=== PATIENT | female | born 1945 | race Caucasian/White ===

== ENCOUNTER 2018-03-13 17:40 | Emergency (ER) | payer MEDICARE ==
[~2018-03-13] VITALS: Ht 157.5 cm; Wt 90.0 kg
[~2018-03-13 17:40] MED LIST: AMBIEN5 MG OR; ASPIRIN81 MG PO; CEFTIN250 MG PO; DETROL LA4 MG OR; DETROL2 MG OR; DILAUDID2 MG OR; DIOVAN HC1 OR; DIOVAN40 MG OR; DIPROLENE AF0.05 % EX; DOCUSATE SOD100 M2 OR; LORTAB 7.5 OR; LOVENOX 4040 MG/0.4 SC; MOMETASONE0.11 EX; MULT VITAMI1 OR; MULTIVITAMI9 OR; OS-CAL 500500 M1 PO; PRAVASTATIN40 MG OR; PREMARIN0.3 MG OR; PREVACID30 M1 PO; RELAFEN OR; TEMOVATE0.051 EX; TRAZODONE50 MG OR; TYLENOL325 MG OR; VENTOLIN HF1 IN; XANAX0.25 MG PO; XANAX0.5 MG PO
[2018-03-13] MEDS ORDERED: SPIRIVA HANDIH18 MCG IN (18:10)
[2018-03-13] MEDS ORDERED: OXYCODONE PO (18:10)
[2018-03-13] MEDS ORDERED: CONJUGATED ESTROGENS PO (18:11)
[2018-03-13] MEDS ORDERED: CLOBETASOL PRO0.05 % EX (18:12)
[2018-03-13] MEDS ORDERED: ARCAPTA NEOHAL75 MCG IN (18:12)
[2018-03-13] MEDS ORDERED: NEURONTIN300 MG PO (18:13)
[2018-03-13] MEDS ORDERED: CELECOXIB200 MG PO (18:13)
[2018-03-13] MEDS ORDERED: BACLOFEN20 MG PO (18:14)
[2018-03-13] MEDS ORDERED: LASIX 40 MG TAB40 MG PO (18:14)
[2018-03-13] MEDS ORDERED: ZOLPIDEM TARTRA10 MG PO (18:17)
[2018-03-13] MEDS ORDERED: ALPRAZOLAM0.5 M2 PO (18:17)
[2018-03-13] MEDS ORDERED: ALPRAZOLAM0.25 M1 PO ×2 (18:18)
[2018-03-13] MEDS ORDERED: LOPRESSOR25 M1 PO (18:18)
[2018-03-13] MEDS ORDERED: PRAVASTATIN SOD40 MG PO (18:19)
[2018-03-13] MEDS ORDERED: LEVOTHYROXIN75 MC1 PO (18:19)
[2018-03-13] MEDS ORDERED: COLACE100 MG PO (18:21)
[2018-03-13] MEDS ORDERED: CIPROFLOXACN500 MG PO (18:27)
[2018-03-13 18:39] VITALS: BP 135/88
== END 2018-03-13 18:39 | disposition home or self-care (01) ==
LOC: ED 17:40
PROC: 0HDRXZZ Extraction of Toe Nail, External Approach (ICD-10-PCS; principal; 2018-03-13)
DX: S91.201A Unspecified open wound of right great toe with damage to nail, initial encounter (principal); I10 Essential (primary) hypertension; F41.9 Anxiety disorder, unspecified; W22.8XXA Striking against or struck by other objects, initial encounter; Z85.118 Personal history of other malignant neoplasm of bronchus and lung

== ENCOUNTER 2021-04-25 01:27 | Inpatient (IN) | payer MEDICARE, MEDICAID ==
[~2021-04-25] VITALS: Ht 157.5 cm; Wt 75.0 kg
[~2021-04-25 01:27] MED LIST changes: +ALPRAZOLAM0.25 M1 PO; +ALPRAZOLAM0.5 M2 PO; +ARCAPTA NEOHAL75 MCG IN; +BACLOFEN20 MG PO; +CELECOXIB200 MG PO; +CIPROFLOXACN500 MG PO; +CLOBETASOL PRO0.05 % EX; +COLACE100 MG PO; +CONJUGATED ESTROGENS PO; +LASIX 40 MG TAB40 MG PO; +LEVOTHYROXIN75 MC1 PO; +LOPRESSOR25 M1 PO; +NEURONTIN300 MG PO; +OXYCODONE PO; +PRAVASTATIN20 MG PO; +SPIRIVA HANDIH18 MCG IN; +ZOLPIDEM TARTRA10 MG PO
--- NOTE | 2021-04-25 01:27 | NUR ---
PT TO ROOM VIA EMS STRETCHER FOR BEDSIDE TRIAGE.
[2021-04-25 02:00] LABS: IMMATURE GRANULOCYTES 0.4 % (0.0-5.0); MEAN CELL VOLUME 90.6 fL CALC (80.0-100.0); MEAN CORPUSCULAR HGB 28.1 pG CALC (26.0-32.0); NEUT# 11.9 thou/uL (2.00-7.15); RED BLOOD COUNT 4.49 mill/uL (4.20-5.60); RED CELL DISTRI WIDTH 14.6 % (11.5-15.5)
--- NOTE | 2021-04-25 02:00 | NUR ---
PT ANXIOUS UPON ARRIVAL DOESN'T WANT TO REMOVE HER GOWN BUT AGREES AFTER REASON EXPLANATION PROVIDED, C/O PAIN STATING SHE HASN'T HAD HER PAIN MEDICATION TONIGHT YET, AND SOB WITH MINIMAL TO NO EXERTION, PT HAS HX OF COPD AND IS ACTIVELY IN TREATMENT FOR LUNG CA; O2 DEPENDENT AT HOME, SATS 97% ON 4L NC, 20G EMS SITE IN LAC AND NEW 20G IN R WRIST WITH LABS OBTAINED PT LUNG SOUNDS COARSE WITH MOIST COUGH AND PT STATES THE COARSENESS AND WET COUGH ALL STARTED TODAY, COMFORT MEASURES PROVIDED, CALL WESLEY WITHIN REACH
[2021-04-25 02:03] LABS: HEMATOCRIT 40.7 % (37.0-47.0); HEMOGLOBIN 12.6 g/dl (12.0-16.0)
[2021-04-25 02:28] LABS: ALKALINE PHOSPHATASE 82 u/l (38-126); BUN 15 mg/dL (8-23); BUN/CREATININE RATIO 19 (12-20 (CALC)); CHLORIDE 96 mmol/l (95-108); CREATININE 0.8 mg/dL (0.5-1.0); GFR > 60 ML/MIN (>=60 (CALC)); GFR FOR AFR.AMER. > 60 ML/MIN (>=60 (CALC)); POTASSIUM 3.4 mmol/l (3.5-5.1); SGOT/AST 29 u/l (9-36); SODIUM 132 mmol/l (137-146); TOTAL PROTEIN 5.8 g/dL (6.3-8.2)
[2021-04-25 02:30] LABS: ANION GAP 9 (6-22 (CALC)); BILIRUBIN, TOTAL 0.9 mg/dL (0.0-1.4); CARBON DIOXIDE 30 mmol/l (22-30)
--- NOTE | 2021-04-25 03:00 | NUR ---
PT CONTINUES TO HAVE MOIST INTERMITTENT COUGH, DAUGHTER AT BEDSIDE, VS STABLE, AFEBRILE, WILL CONTINUE TO MONITOR.
--- NOTE | 2021-04-25 03:38 | NUR ---
PT MEDICATED ORDERED WITH IVF AND ABT WELL STEROIDS.
--- NOTE | 2021-04-25 03:39 | NUR ---
PT AWARE OF NEED FOR SPUTUM SPECIMEN IF POSSIBLE
--- NOTE | 2021-04-25 04:18 | NUR ---
BEDSIDE COMMODE PLACED, PT INSTRUCTED NOT TO USE WITHTOUT CALLING FOR ASSIST, PT VERBALIZES UNDERSTANDING AND COMPLIANCE
--- NOTE | 2021-04-25 05:15 | NUR ---
REPORT CALLED TO MARÍA ON MED SURG.
--- NOTE | 2021-04-25 05:24 | NUR ---
PT TRANSPORTED TO MED SURG VIA STRETCHER FOR ADMISSION, ALL BELONGINGS AND PAPERWORK SENT WITH PATIENT.
[2021-04-25 05:35] VITALS: BP 115/60
[2021-04-25 07:42] VITALS: BP 114/51
--- NOTE | 2021-04-25 09:28 | NUR ---
PT SEEN AWAKE, ALERT, ORIENTED X 3. LUNGS CLEAR, DIMINISHED THROUGHOUT, 2 LPM NC. DAUGHTER MARCOS CALLED, UPDATED. PT WITH SIGNIFICANT LUNG HISTORY PER LUNG CANCER, NOW PNEUMONIA.
[2021-04-25] MEDS ORDERED: NABUMETONE500 MG PO (10:51)
[2021-04-25] MEDS ORDERED: PROTONIX40 M2 PO (10:52)
[2021-04-25] MEDS ORDERED: BIOTIN1000 MCG PO (10:53)
[2021-04-25] MEDS ORDERED: VITAMIN D325 MCG PO (10:56)
[2021-04-25] MEDS ORDERED: K-TABS10 MEQ PO (10:57)
[2021-04-25] MEDS ORDERED: TRAZODONE50 MG PO (10:58)
[2021-04-25] MEDS ORDERED: SINGULAIR10 MG PO (10:59)
[2021-04-25] MEDS ORDERED: OXYCODONE30 MG PO (11:00)
[2021-04-25] MEDS ORDERED: PREMARIN0.3 MG PO (11:03)
[2021-04-25] MEDS ORDERED: SPIRIVA IN (11:07)
[2021-04-25] MEDS ORDERED: DULERA1 AE1 IN (11:08)
[2021-04-25 11:20] VITALS: BP 102/56
--- NOTE | 2021-04-25 13:42 | NUR ---
PT SEEN BY DR SY AND ARIANNA TUTTLE THIS MORNING. IVF STOPPED, CXR COMPLETED, LASIX THEN GIVEN. PT TO BSC NEEDED.
[2021-04-25 15:06] LABS: URINE BILIRUBIN - DIPSTICK NEGATIVE (NEGATIVE); URINE BLOOD DIPSTICK NEGATIVE (NEGATIVE); URINE COLOR YELLOW; URINE GLUCOSE - DIPSTICK NEGATIVE (NEGATIVE); URINE KETONE NEGATIVE (NEGATIVE); URINE LEUK ESTERASE NEGATIVE (NEGATIVE); URINE PROTEIN - DIPSTICK TRACE mg/dL (NEG-TRACE); URINE UROBILINOGEN - DIPSTICK 0.2 E.U./dL (0.2)
[2021-04-25 15:07] LABS: URINE NITRITE - DIPSTICK NEGATIVE (Negative)
[2021-04-25 15:10] VITALS: BP 119/58
--- NOTE | 2021-04-25 16:55 | NUR ---
PT MED LIST UPDATED, PHYSICIAN AWARE. PT APPEARS AND FEELS WEAK. SHE SPEAKS OF SORENESS IN MOUTH, BLACK SPOTS SEEN ON PHARYNX, NOT THRUSH SHE BELIEVED.
[2021-04-25 19:47] VITALS: BP 97/54
--- NOTE | 2021-04-25 20:00 | NUR ---
RECEIVED REPORT FROM NURSE AREVALO PATIENT RESTING IN CHAIR, HOOKED TO O2 @ 2LPM VIA NC WITH SALINE LOCK ON RT WRIST G20 SALINE LOCK, PETENT AND FLUSHES WELL, DENIES PAIN AT THIS TIME, BREATHING SHALLOW, EXERTIONAL DYSPNEA NOTED, DIMISHED LUNG SOUNDS ON BOTH LUNG BUCHANAN, TRACE OF EDEMA NOTED ON BOTH LEGS,CALL LIGHT AT REACH.
[2021-04-26] VITALS: BP 92/57
--- NOTE | 2021-04-26 00:04 | NUR ---
PATIENT SITTING IN RECLINER WATCHING TV, DENIES DISCOMFORTS AT THIS TIME, CALL LIGHTA T REACH.
--- NOTE | 2021-04-26 03:32 | NUR ---
PATIENT APPEARS TO BE SLEEPING, RESTING IN RECLINER, BREATHING UNLABORED, CALL LIGHT AT REACH.
[2021-04-26 04:00] VITALS: BP 120/61
[2021-04-26 05:37] LABS: HEMATOCRIT 36.2 % (37.0-47.0); HEMOGLOBIN 11.2 g/dl (12.0-16.0); MEAN CORPUSCULAR HGB 28.1 pG CALC (26.0-32.0); MEAN CORPUSCULAR HGB CONC 30.9 g/dL CAL (32.0-36.0); RED BLOOD COUNT 3.98 mill/uL (4.20-5.60); RED CELL DISTRI WIDTH 14.8 % (11.5-15.5)
[2021-04-26 05:53] LABS: ALBUMIN 2.6 g/dL (3.2-5.0); ALKALINE PHOSPHATASE 65 u/l (38-126); ANION GAP 12 (6-22 (CALC)); BILIRUBIN, TOTAL 0.7 mg/dL (0.0-1.4); BUN 18 mg/dL (8-23); BUN/CREATININE RATIO 19 (12-20 (CALC)); CARBON DIOXIDE 26 mmol/l (22-30); CHLORIDE 97 mmol/l (95-108); CREATININE 0.9 mg/dL (0.5-1.0); GFR > 60 ML/MIN (>=60 (CALC)); GFR FOR AFR.AMER. > 60 ML/MIN (>=60 (CALC)); SGOT/AST 32 u/l (9-36); SODIUM 131 mmol/l (137-146); TOTAL PROTEIN 5.1 g/dL (6.3-8.2)
--- NOTE | 2021-04-26 07:00 | NUR ---
RECIEVED REPORT FROM YEN PHILLIPS.
[2021-04-26 07:31] VITALS: BP 110/52
--- NOTE | 2021-04-26 07:31 | NUR ---
PT IS SITTING UP ON SIDE OF BED. PT IS A/OX3. ASSESSMENT AND VITALS COMPLETED. BP 110/52, HR 110, O2 94% ON 3.5L NC. RESPIRATIONS ARE EVEN AND UNLABORED.DIMINSHED WHEEZING PRESENT UPON ASCULTATION.BOWEL SOUNDS ARE ACTIVE. HEART RHYTHM NORMAL WITH TELE MONITORING IN PLACE. RADIAL AND PEDAL PULSES ARE STRONG.#20G IN RW FLUSHED, SITE APPEARS HEALTHY AND PATENT.PT COMPLAINS OF 8/10 PAIN IN BACK.PT TO BE MEDICATED PER EMAR. SKIN INTACT.PT DENIES OF ANY OTHER NEEDS AT THIS TIME.ALL SAFETY PRECAUTIONS ARE IN PLACE WITH CALL LIGHT IN REACH.ENCOURAGED PT TO CALL FOR ASSSITANCE.PT VERBALIZED UNDERSTANDING. WILL CONTINUE TO MONITOR.
--- NOTE | 2021-04-26 08:33 | NUR ---
TELE MONITOR ACE CALLED STATING PT HR 130'S.PT RESTING IN CHAIR.PT STATES SHE JUST GOT BACK FROM USING THE RESTROOM. REPSIRATIONS SHALLOW. PT DENIES OF ANY NEEDS AT THIS. ATTEMPTED TO PLACE FALL RISK BAND.PT REFUSES TO APPLY BAND. PT INSTRUCTED TO CALL FOR ASSISTANCE. PT VERBALIZED UNDERSTANDING. ALL SAFETY PRECAUTIONS ARE IN PLACE.WILL CONTINUE TO MONITOR.
--- NOTE | 2021-04-26 09:27 | NUR ---
#20G IN RW REMOVED WITH CATHATER STILL INTACT. NEW #22G IN LFA STARTED, SITE APPEARS HEALTHY AND PATENT.
--- NOTE | 2021-04-26 09:53 | NUR ---
DR SY AT BEDSIDE
--- NOTE | 2021-04-26 10:50 | NUR ---
PRELIMINARY CULTURE RESULTS CALLED TO / VIALS GROWING GRAM (-) CONNIE. NO NEW ORDERS, PATIENT IS ON LEVAQUIN 750MG IV Q24HR
[2021-04-26 10:55] VITALS: BP 92/53
--- NOTE | 2021-04-26 12:01 | NUR ---
PT SITTING UP IN RECYLINER EATING LUNCH.REPSIRATIONS ARE EVEN AND UNLABORED ON 3.5L NC. #22G IN LFA REMAINS IN PLACE.TELE MONITORING IN PLACE.PT DENIES OF ANY PAINS OR DISCOMFORTS ATTHIS TIME.ALL SAFETY PRECAUTIONS ARE IN PLACE WITH CALL LIGHT IN REACH.ENCOURAGED PT TO CALL FOR ASSISTANCE.WILL CONTINUE TO MONITOR.
--- NOTE | 2021-04-26 12:26 | NUR ---
DAUGHTER UCHE CALLED FOR UPDATE. PERMISSION TO GIVE PASSCODE TO DAUGHTER. UPDATE PROVIDED. GATE SHEAR OPERATOR INFORMED THAT PT HAS BEEN SEEING A TEAMO OF DOCTORS FOR THE " MOLD IN HER LUNGS THAT SHE HAS HAD FOR THE PAST 6 MONTHS." INCLUDING INFECTION DISEASE
[2021-04-26] MEDS ORDERED: CONJUGATED ESTROGENS PO (12:41)
[2021-04-26] MEDS ORDERED: BACLOFEN20 MG PO (12:44)
[2021-04-26] MEDS ORDERED: NABUMETONE500 MG PO (12:46)
[2021-04-26] MEDS ORDERED: OXYCODONE30 MG PO (12:56)
[2021-04-26] MEDS ORDERED: ALPRAZOLAM0.5 MG PO (13:00)
--- NOTE | 2021-04-26 13:00 | NUR ---
SON AT BEDSIDE
[2021-04-26] MEDS ORDERED: LEVOTHYROXIN112 MC1 PO (13:02)
[2021-04-26] MEDS ORDERED: PRAVACHOL40 MG PO (13:05)
--- NOTE | 2021-04-26 14:30 | NUR ---
PT REQUEST TO AMBULATE UP AND DOWN [address].SHAMIKA OROPEZAA TO ASSIST. PT ABULATED WITH STEADY GAIT USING WALKER. PT CONSULT PLACED PER PT REQUEST.
[2021-04-26 14:34] VITALS: BP 93/50
--- NOTE | 2021-04-26 15:37 | NUR ---
PT AMBULATING AROUND ROOM WITH STEADY GAIT. RESPIRATIONS ARE EVEN AND UNLABORED ON 3.5L NC.#22G IN LFA REMAINS HEALTHY AND PATENT.TELE MONITORING IN PLACE.PT DENIES OF ANY PAINS OR DISCOMFORTS AT THIS TIME.ALL SAFETY PRECAUTIONS ARE IN PLACE WITH CALL LIGHT IN REACH. WILL CONTINUE TO MONITOR.
--- NOTE | 2021-04-26 18:33 | NUR ---
O2 95% ON 3.5L NC. O2 DECREASED TO 2.5L NC. O2 REMAINS AT 93%. RESPIRATIONS ARE EVEN AND UNLABORED. PT INSTRUCTED TO CALL IF FEELING SOB. PT VERBALIZED UNDERSTANDING. WILL CONTINUE TO MONITOR.
[2021-04-26 19:01] VITALS: BP 105/57
--- NOTE | 2021-04-26 19:49 | NUR ---
PATIENT SITTING UP IN THE CHAIR AT THIS TIME WITH O2 VIA NASAL CANNULA IN PLACE AT 2.5LPM. AWAKE ALERT AND ORIENTEDX3 WITH NO COMPLAINTS AT THIS TIME. TELE MONITOR IN PLACE AND READING SR AT THIS TIME. IV SITE TO LEFT FOREARM INTACT AND APPEARS HEALTHY AT THIS TIME. SAFETY PRECAUTIONS REINFORCED. CALL LIGHT IN REACH. WILL CONT TO MONITOR.
--- NOTE | 2021-04-26 20:30 | NUR ---
PATIENT REMAINS UP IN THE CHAIR WITH O2 VIA NASAL CANNULA IN PLACE. METOPROLOL IS BEING HELD-LOW BP THROUGHOUT THE DAY-PATIENT STATES THAT SHE NO LONGER TAKE THAT MED AT HOME BECAUSE IT CAUSED HER BP TO BE TOO LOW. MEDICATED WITH OXYCONTIN 40MG ORDERED FOR GENERALIZED PAIN AMARI LEFT HIP. STATES THAT SHE WOULD LIKE TO TAKE THE REST OF HER BEDTIME MEDS AROUND 2200. WILL MEDICATE AT THAT TIME. SAFETY PRECAUTIONS REINFORCED. CALL LIGHT IN REACH. WILL CONT TO MONITOR.
[2021-04-27] VITALS (9 sets, daily range): BP systolic 94–192; BP diastolic 52–89
--- NOTE | 2021-04-27 00:24 | NUR ---
PATIENT SITTING ON THE SIDE OF THE BED. AWAKE ALERT WITH O2 VIA NASAL CANNULA IN PLACE. BP-134/68, HR-110. O2 SATS ARE 91%. PATIENT MEDICATED WITH METOPROLOL 25MG THAT WAS HELD EARLIER FOR LOW BP. VOIDING QS IN BR. TELE MONITOR IN PLACE. SALINE LOCK TO LEFT FOREARM INTACT. CALL LIGHT IN REACH. WILL CONT TO MONITOR.
--- NOTE | 2021-04-27 02:46 | NUR ---
PATIENT STILL AWAKE-ASSISTED INTO BED WITH O2 VIA N/C AT 2LPM. TELE MONITOR IN PLACE. CALL LIGHT IN REACH. WILL CONT TO MONITOR.
--- NOTE | 2021-04-27 05:12 | NUR ---
PATIENT RESTING IN BED AT THIS TIME WITH O2 VIA NASAL CANNULA IN PLACE AT 2LPM. TELE MONITOR IN PLACE-LAST READING WAS SR-91. SALINE LOCK TO LEFT FA INTACT. SAFETY PRECAUTIONS REINFORCED. CALL LIGHT IN REACH. WILL CONT TO MONITOR.
[2021-04-27 05:23] LABS: HEMATOCRIT 33.4 % (37.0-47.0); MEAN CELL VOLUME 92.3 fL CALC (80.0-100.0); MEAN CORPUSCULAR HGB 27.6 pG CALC (26.0-32.0); MEAN CORPUSCULAR HGB CONC 29.9 g/dL CAL (32.0-36.0); RED BLOOD COUNT 3.62 mill/uL (4.20-5.60)
[2021-04-27 05:50] LABS: ALBUMIN 2.5 g/dL (3.2-5.0); BILIRUBIN, TOTAL 0.6 mg/dL (0.0-1.4); CREATININE 1.5 mg/dL (0.5-1.0); POTASSIUM 4.3 mmol/l (3.5-5.1); TOTAL PROTEIN 5.1 g/dL (6.3-8.2)
--- NOTE | 2021-04-27 06:17 | NUR ---
PATIENT RESTING IN BED-GLUCOSE ON BLOOD DRAW THIS MORNING WAS 57-PATIENT AWOKEN AND PROVIDED WITH OJ AND CRACKERS WITH PEANUT BUTTER. SITTING UP ON THE SIDE OF THE BED EATING. CALLED FOR EARLY BREAKFAST TRAY. WILL CONT TO MONITOR.
--- NOTE | 2021-04-27 06:29 | NUR ---
RECHECK ON ACCU-CHECK IS 74-STILL AWAITING BREAKFAST TRAY. WILL CONT TO MONITOR.
--- NOTE | 2021-04-27 07:45 | NUR ---
ASSESSMENT IS COMPELTED: IV SITE IS FREE FROM REDNESS OR EDEMA. HR IS REG,PULSES ARE STRONG X4, ABD IS SOFT WITH ACTIVE BS. BREATH SOUNDS ARE CLEAR,AND DIMINISHED BILATERALLY, TELE MONITOR IN PLACE.
--- NOTE | 2021-04-27 12:20 | NUR ---
PT IS CHAIR WITH NO DISTRESS NOTED. IV SITE IS FREE FROM REDNESS OR EDEMA.
--- NOTE | 2021-04-27 12:36 | NUR ---
SPEAKING WITH PT'S DAUGHTER RE: PT CONCERNED ABOUT HER O2 BEING LOW AND PULSE WAS HIGH. PRIOR TO COMING IN . HAS HOME HEALTH CARE AT HOME. THEY WILL CONTACT HER IN [place].
--- NOTE | 2021-04-27 12:41 | NUR ---
PT HAD A STEROID AND IRON INFUSION IN [facility].
--- NOTE | 2021-04-27 17:19 | NUR ---
FAMILY IN THE ROOM. INQUIRED IF MAYBE PT HAD A STROKE. EFE ELLIOTT NOTIFIED, INFORMED THAT HE DID CHECK FOR A STROKE LIKE SYMPTOMS. NONE. PT IS VERY SLEEPY.
--- NOTE | 2021-04-27 18:30 | NUR ---
FAMILY IN THE ROOM. AND CAME OUT AND WAS TALKING AT RANDOM TO STAFF. NOT ADDRESSING A CERTAIN STAFF. STATED:"I THINK MY MOTHER HAD A STROKE, EVEN THOUGH THE LEXI IS STATING NO,I GUESS I WILL LEAVE". PT'S FAMILY HAS BEEN SPOKEN TO BY EFE ELLIOTT ABOUT HER CONCERNS. WILL HOLD HER PM MED FOR PAIN. PT STATED" I DIDNOT SLEEP ALL NIGHT".
--- NOTE | 2021-04-27 19:48 | NUR ---
FAMILY CALLED FROM [facility] INQUIRED ABOUT HER., PT IS HAS BEEN RESTING ON AND OFF. AND THINKING THAT PT MAY HAVE HAD A STROKE. INFORMED THAT [facility]PN IN TO VISIT WITH PT AND FAMILY. MORE FAMILY. CALLING. RE: PT.
--- NOTE | 2021-04-27 21:00 | NUR ---
PATIENT RESTING IN BED WITH O2 VIA NASAL CANNULA IN PLACE-O2 SAT AT THIS TIME IS 92%. PATIENT IS AWAKE ALERT AND ORIENTEDX3. PATIENT UNABLE TO GET UP TO THE SIDE OF THE BED. PATIENT BALANCE IS OFF-UNSTEADY AT THIS TIME. SPEECH IS SLIGHTLY SLURRED. PUPILS ARE 2MM AND MELLY AT THIS TIME. PATIENT BUE-NO DRIFT. BLE-NO DRIFT. PATIENT WITH C/O PAIN AND HAVING HIGH ANXIETY. SPOKE WITH DR. WADE AND STROKE ALERT CALLED AT [id number], BP-146/66, HR-107, R-22-O2 SAT IS 96%. ACCU-CHECK WAS 96 AT THIS TIME. TELE MED NEURO WITH DR. OROZCO. PATIENT FOR CT BRAIN, CTA, AND MRI. PATIENT AND PATIENT FAMILY MADE AWARE OF ARRANGEMENTS BEING MADE FOR TESTING AND TRANSFER TO [facility]. PATIENT WITH BE ACCEPTED BY [facility] IN [place]. PATIENT WITH TELE MONITOR IN PLACE-READING ST-113. IV SITE TO RIGHT WRIST INTACT WITH IVF NS PATENT AND INFUSING AT 100CC/HR. SITE REMAINS HEALTHY. O2 VIA NASAL CANNULA IN PLACE AT 2LPM-O2 SAT IS 96% AT THIS TIME. PATIENT RESTING IN BED AT THIS TIME WITH HOB ELEVATED. SAFETY PRECAUTIONS REINFORCED. CALL LIGHT IN REACH. WILL CONT TO MONITOR.
--- NOTE | 2021-04-27 22:00 | NUR ---
PATIENT RESTING IN ROOM AT THIS TIME. AWAKE ALERT AND ORIENTEDX3. O2 VIA NASAL CANNULA IN PLACE. TELE MONITOR IN PLACE. NO NEW COMPLAINTS. AWAITING TRANSFER TO [facility] FOR TESTING. CALL LIGHT IN REACH. WILL CONT TO MONITOR.
--- NOTE | 2021-04-27 23:00 | NUR ---
PATIENT RESTING AT THIS TIME-AWAITING TRANSFER TO [facility]. NO NEW COMPLAINTS. CALL LIGHT IN REACH. WILL CONT TO MONITOR.
--- NOTE | 2021-04-28 00:42 | NUR ---
PATIENT BEING TRANSFERRED TO [facility] VIA STRETCHER WITH [facility] TRANSPORT. PATIENT TELE REMOVED AND SENT BACK TO THE ER. PATIENT BEING MONITOR BY TRANSPORT STAFF. SALINE LOCK TO LEFT FOREARM INTACT. O2 VIA NASAL CANNULA IN PLACE. TRANSFER PACKET GIVEN TO THE TRANSPORT PERSONEL. REPORT WAS GIVEN TO ANDIE AT [facility]. PATIENT LEFT THE [facility] AT APPROX 0000 VIA STRETCHER.
== END 2021-04-28 | disposition short-term general hospital (02) | DRG 190 ==
LOC: ED 01:27 → ED-I 02:39 → ED 04:32 → MS2 04:33
PROVIDERS: Emergency Medicine; Nurse Practitioner Family; ADMIT Internal Medicine; ATTEND Internal Medicine
DX: J44.1 Chronic obstructive pulmonary disease with (acute) exacerbation (principal); J18.9 Pneumonia, unspecified organism; R78.81 Bacteremia; J44.0 Chronic obstructive pulmonary disease with (acute) lower respiratory infection; I10 Essential (primary) hypertension; F41.9 Anxiety disorder, unspecified; E03.9 Hypothyroidism, unspecified; R07.89 Other chest pain; G89.29 Other chronic pain; J39.2 Other diseases of pharynx; R91.8 Other nonspecific abnormal finding of lung field; R47.81 Slurred speech; R26.89 Other abnormalities of gait and mobility; R53.1 Weakness; Z85.118 Personal history of other malignant neoplasm of bronchus and lung; Z99.81 Dependence on supplemental oxygen; Z90.2 Acquired absence of lung [part of]; Z92.21 Personal history of antineoplastic chemotherapy; Z20.822 Contact with and (suspected) exposure to COVID-19
CPT/HCPCS: J1650